=== PATIENT | male | born 1940 | race Caucasian/White ===

== ENCOUNTER 2016-05-21 09:11 | Emergency (ER) | payer MEDICARE ==
[~2016-05-21] VITALS: Ht 182.9 cm; Wt 107.0 kg
[~2016-05-21 09:11] MED LIST: AMIO200T PO; ASPI81 PO; CALC500T35 PO; CARV25TA PO; COZA100T PO; DOXY100T PO; FENO50TA PO; FOLI400T30 PO; FURO1TAB93 PO; GLUC750T22 PO; LORTA5 PO; MINO100 PO; OMEG600C2 PO; SELE200T PO; SIMV20TA PO; SPIR25TA PO; VITA100018 PO; VITA500T49 PO
[2016-05-21 09:20] VITALS: BP 136/74; PULSE 66; RESP 16; TEMP 97.5; O2SAT 98
[2016-05-21 09:41] VITALS: BP 117/62; PULSE 67; RESP 18; O2SAT 96
[2016-05-21] MEDS ORDERED: SODIUM CHLORIDE 0.9% FLUSH 5 ML FLUSH IVF PRN (09:45)
--- NOTE | 2016-05-21 09:45 | PD ---
HPI Chief Complaint: Dizziness Time Seen by Provider: 09:24 Travel History International Travel<30 days: No Contact w/Intl Traveler<30days: No Traveled to known affect area: No History of Present Illness HPI The patient is a 75-year-old male who presents to the emergency department for shortness of breath and dizziness. The patient notes a 2 week history of shortness of breath, was evaluated by his sports leadership instructor, Dr. Medina, who stated his lungs were clear. The patient also states that he has a history of sleep apnea, has been using his CPAP at night, however, he had a leak and has been blowing dry air. The patient thinks that the malfunction in his continuous positive airway pressure machine is causing his problems. The patient then developed dizziness last night that he describes as "things moving ", when he rolled over onto his side. The patient denies any neurologic deficits associated with his dizziness/vertigo. Patient denies any current chest pain, nausea, vomiting, or abdominal pain. The patient does have a primary physician, Dr. Kearns, and a paralegals, Dr. Vega. The patient's symptoms are moderate, there are no current alleviating factors. PFSH Past Medical History Autoimmune Disease: Yes (HX OF SHINGLES IN 04/14) Heart Rhythm Problems: Yes (FAST) Cancer: Yes (L HAND SKIN CANCER) Cardiovascular Problems: Yes High Cholesterol: Yes Diminished Hearing: No Endocrine: No Genitourinary: Yes Hypertension: Yes Immune Disorder: No Musculoskeletal: No Neurologic: Yes Psychiatric: No Reproductive: No Respiratory: Yes Immunizations Current: No Sleep Apnea: Yes (RECENTLY STARTED USE OF C-PAP MACHINE ON 10/17/10) PNEUMOCCOCAL Vaccine (Year): 2009 Past Surgical History AICD: Yes Cardiac Surgery: Yes (IACD) Eye Surgery: Yes (BILAT CATARACTS WITH LENS IMPLANTS) Oral Surgery: Yes (TONSILLECTOMY) Pacemaker: Yes (IACD) Tonsillectomy: Yes Other Surgery: Yes Social History Alcohol Use: No Tobacco Use: No Substance Use: No Allergies-Medications (Allergen,Severity, Reaction): Coded Allergies: Benadryl (Verified Allergy, Severe, RASH, 08/02/12) BENADRYL CREME Cephalexin (Verified Allergy, Severe, HIVES, 08/02/12) Cipro (Verified Allergy, Severe, RASH, 08/02/12) Latex (Verified Allergy, Severe, RASH, 08/02/12) BIO-OCCLUSIVE DRESSING Mupirocin (Verified Allergy, Severe, RASH, HIVES, 08/02/12) Percocet (Verified Allergy, Severe, RASH, 08/02/12) Sotalol (Verified Allergy, Severe, RASH AND VOMITING, 08/02/12) Ropinirole (Verified Allergy, Unknown, Shortness of Breath, 05/21/16) Reported Meds & Prescriptions Reported Meds & Active Scripts Active Reported Vitamin B-12 (Cyanocobalamin) 500 Mcg Tab 500 Mcg PO DAILY Calcium (Calcium Carbonate) 1,500 Mg Tab 1,500 Mg PO BID 1,500 mg calcium carbonate (600 mg elemental calcium) Fish Oil ([place]-3 Fatty Acids) 1,200 Mg Cap 1 Cap PO BID Folic Acid 400 Mcg Tab 400 Mcg PO DAILY Selenium 200 Mcg Cap 200 Mg PO DAILY Vitamin D (Cholecalciferol) 1,000 Unit Tab 1,000 Units PO DAILY Glucosamine 1,500 Mg Tab 1,500 Mg PO DAILY Symbicort Inh (Budesonide/Formoterol Fumarate) 80-4.5 Mcg/Act Aero 1 Puff INH Q12HR Aspirin 81 Mg Tabdr 81 Mg PO DAILY Digoxin 0.125 Mg Tab 0.125 Mg PO DAILY Spironolactone 25 Mg Tab 25 Mg PO DAILY Amiodarone (Amiodarone HCl) 100 Mg Tab 100 Mg PO DAILY Losartan (Losartan Potassium) 50 Mg Tab 50 Mg PO DAILY Carvedilol 12.5 Mg Tab 12.5 Mg PO BID Furosemide 40 Mg Tab 40 Mg PO DAILY Review of Systems Except as stated in HPI: all other systems reviewed are Neg General / Constitutional: No: Fever HENT: No: Headaches, Lightheadedness Cardiovascular: No: Chest Pain or Discomfort Respiratory: Positive: Shortness of Breath Gastrointestinal: No: Nausea, Vomiting, Abdominal Pain Musculoskeletal: No: Weakness Neurologic: Positive: Dizziness, No: Focal Abnormalities Physical Exam Narrative GENERAL: Awake, alert, pleasant 75-year-old male who appears his stated age and is in no acute respiratory distress. SKIN: Warm and dry. HEAD: Atraumatic. Normocephalic. EYES: Pupils equal and round. Pupils are 4 mm bilateral and reactive. EOMs are intact. ENT: No nasal bleeding or discharge. Mucous membranes pink and moist. NECK: Trachea midline. No JVD. CARDIOVASCULAR: Regular rate and rhythm. No murmur appreciated. Pacemaker in place left chest wall. RESPIRATORY: No accessory muscle use. Clear to auscultation. Breath sounds equal bilaterally. GASTROINTESTINAL: Abdomen soft, non-tender, nondistended. No rebound tenderness. MUSCULOSKELETAL: No obvious deformities. No clubbing. No cyanosis. Trace edema the lower extremities. NEUROLOGICAL: Awake and alert. No obvious cranial nerve deficits. Motor grossly within normal limits. Normal speech. Nonfocal. Oriented 4. Follows commands without difficulty. PSYCHIATRIC: Appropriate mood and affect; insight and judgment normal. Data Data Last Documented VS Vital Signs Date Time Temp Pulse Resp B/P Pulse Ox O2 Delivery O2 Flow Rate FiO2 05/21/16 11:21 50 16 114/61 97 Room Air 05/21/16 09:20 97.5 Orders Complete Blood Count With Diff (05/21/16 09:33) Comprehensive Metabolic Panel (05/21/16 09:33) B-Type Natriuretic Peptide (05/21/16 09:33) Magnesium (Mg) (05/21/16 09:33) Ckmb (Isoenzyme) Profile (05/21/16 09:33) Troponin I (05/21/16 09:33) Iv Access Insert/Monitor (05/21/16 09:33) Electrocardiogram (05/21/16 09:33) Ecg Monitoring (05/21/16 09:33) Oximetry (05/21/16 09:33) Oxygen Administration (05/21/16 09:33) Chest, Single Ap (05/21/16 09:33) Sodium Chloride 0.9% Flush (Ns Flush) (05/21/16 09:45) Ct Brain W/O Iv Contrast(Rout) (05/21/16 ) Digoxin (05/21/16 09:39) Labs Laboratory Tests Test 05/21/16 10:10 White Blood Count 6.6 TH/MM3 Red Blood Count 4.01 MIL/MM3 Hemoglobin 13.5 GM/DL Hematocrit 39.5 % Mean Corpuscular Volume 98.7 FL Mean Corpuscular Hemoglobin 33.7 PG Mean Corpuscular Hemoglobin 34.1 % Concent Red Cell Distribution Width 13.6 % Platelet Count 99 TH/MM3 Mean Platelet Volume 9.7 FL Neutrophils (%) (Auto) 63.9 % Lymphocytes (%) (Auto) 15.7 % Monocytes (%) (Auto) 14.2 % Eosinophils (%) (Auto) 5.6 % Basophils (%) (Auto) 0.6 % Neutrophils # (Auto) 4.3 TH/MM3 Lymphocytes # (Auto) 1.0 TH/MM3 Monocytes # (Auto) 0.9 TH/MM3 Eosinophils # (Auto) 0.4 TH/MM3 Basophils # (Auto) 0.0 TH/MM3 CBC Comment AUTO DIFF Differential Comment AUTO DIFF CONFIRMED Platelet Estimate LOW Platelet Morphology Comment NORMAL Sodium Level 135 MEQ/L Potassium Level 4.4 MEQ/L Chloride Level 98 MEQ/L Carbon Dioxide Level 26.6 MEQ/L Anion Gap 10 MEQ/L Blood Urea Nitrogen 25 MG/DL Creatinine 1.20 MG/DL Estimat Glomerular Filtration 59 ML/MIN Rate Random Glucose 139 MG/DL Calcium Level 9.5 MG/DL Magnesium Level 2.2 MG/DL Total Bilirubin 1.1 MG/DL Aspartate Amino Transf 28 U/L (AST/SGOT) Alanine Aminotransferase 15 U/L (ALT/SGPT) Alkaline Phosphatase 107 U/L Total Creatine Kinase 38 U/L Troponin I LESS THAN 0.02 NG/ML B-Type Natriuretic Peptide 1859 PG/ML Total Protein 6.4 GM/DL Albumin 3.1 GM/DL Digoxin Level 0.7 NG/ML MDM Medical Decision Making Medical Screen Exam Complete: Yes Emergency Medical Condition: Yes Medical Record Reviewed: Yes Interpretation(s) EKG reveals sinus bradycardia with a rate of 50. Intraventricular conduction defect. QRS 186 ms. Q waves noted in lead 3 and aVF. Nonspecific T wave changes. Laboratory Tests Test 05/21/16 10:10 White Blood Count 6.6 TH/MM3 Red Blood Count 4.01 MIL/MM3 Hemoglobin 13.5 GM/DL Hematocrit 39.5 % Mean Corpuscular Volume 98.7 FL Mean Corpuscular Hemoglobin 33.7 PG Mean Corpuscular Hemoglobin 34.1 % Concent Red Cell Distribution Width 13.6 % Platelet Count 99 TH/MM3 Mean Platelet Volume 9.7 FL Neutrophils (%) (Auto) 63.9 % Lymphocytes (%) (Auto) 15.7 % Monocytes (%) (Auto) 14.2 % Eosinophils (%) (Auto) 5.6 % Basophils (%) (Auto) 0.6 % Neutrophils # (Auto) 4.3 TH/MM3 Lymphocytes # (Auto) 1.0 TH/MM3 Monocytes # (Auto) 0.9 TH/MM3 Eosinophils # (Auto) 0.4 TH/MM3 Basophils # (Auto) 0.0 TH/MM3 CBC Comment AUTO DIFF Differential Comment AUTO DIFF CONFIRMED Platelet Estimate LOW Platelet Morphology Comment NORMAL Sodium Level 135 MEQ/L Potassium Level 4.4 MEQ/L Chloride Level 98 MEQ/L Carbon Dioxide Level 26.6 MEQ/L Anion Gap 10 MEQ/L Blood Urea Nitrogen 25 MG/DL Creatinine 1.20 MG/DL Estimat Glomerular Filtration 59 ML/MIN Rate Random Glucose 139 MG/DL Calcium Level 9.5 MG/DL Magnesium Level 2.2 MG/DL Total Bilirubin 1.1 MG/DL Aspartate Amino Transf 28 U/L (AST/SGOT) Alanine Aminotransferase 15 U/L (ALT/SGPT) Alkaline Phosphatase 107 U/L Total Creatine Kinase 38 U/L Troponin I LESS THAN 0.02 NG/ML B-Type Natriuretic Peptide 1859 PG/ML Total Protein 6.4 GM/DL Albumin 3.1 GM/DL Digoxin Level 0.7 NG/ML Chest x-ray reveals normal examination. Left-sided bipolar pacer. Differential Diagnosis Differential diagnosis includes intracranial hemorrhage, vertigo, cerebellar infarct, CVA, labyrinthitis, arrhythmia, congestive heart failure, COPD, pleural effusion. Narrative Course IV was established, labs were drawn and sent, and the patient was placed on cardiac telemetry monitoring and continuous pulse oximetry monitoring. EKG was ordered and interpreted. Chest x-ray was ordered. CT of the brain was ordered. Digoxin level was sent to lab. The patient's chest x-ray was clear. EKG reveals IV conduction defect, most likely left bundle branch block with underlying pacemaker placement. The patient's BNP is elevated, however, chest x -rays clear. Patient may have underlying cardiac myopathy. The patient does have a paralegals and is scheduled for nuclear medicine myocardial perfusion scan this and then an echocardiogram the following . The patient is not hypoxic, heart rate is been in the 50s, blood pressure is stable. No indication for acute diuresis or nitroglycerin with clear chest x- ray. The patient's digoxin level was low at 0.7, doubt the cause of the patient 's dizziness. The patient is advised to follow-up with his paralegals for outpatient date med an echocardiogram as previously scheduled. Diagnosis Primary Impression: Dyspnea Qualified Code: R06.00 - Dyspnea, unspecified type Additional Impression: Dizziness Patient Instructions: General Instructions Additional Instructions: Please provide a patient a copy of his lab work and chest x-ray report at discharge. Follow-up with your paralegals as scheduled for outpatient nuclear medicine myocardial perfusion scan and echocardiogram. Return sooner if symptoms worsen or progress. Med/Other Pt SpecificInfo: No Change to Meds Disposition: 01 DISCHARGE HOME Condition: Stable Ciro Jo MD May 21, 2016 09:45
[2016-05-21] MEDS ORDERED: CARV12.52 PO (09:56)
[2016-05-21] MEDS ORDERED: FISH120014 PO (09:56)
[2016-05-21] MEDS ORDERED: VITA500T4 PO (09:56)
[2016-05-21] MEDS ORDERED: SPIR25TA PO (09:56)
[2016-05-21] MEDS ORDERED: FURO40TA PO (09:56)
[2016-05-21] MEDS ORDERED: [UNRECOGNIZED DRUG - CODE] PO (09:56)
[2016-05-21] MEDS ORDERED: FOLI400T PO (09:56)
[2016-05-21] MEDS ORDERED: ASPI1TAB69 PO (09:56)
[2016-05-21] MEDS ORDERED: VITA100064 PO (09:56)
[2016-05-21] MEDS ORDERED: GLUC15009 PO (09:56)
[2016-05-21] MEDS ORDERED: DIGO0.12 PO (09:56)
[2016-05-21] MEDS ORDERED: LOSA50TA PO (09:56)
[2016-05-21] MEDS ORDERED: AMIO0.1T PO (09:56)
[2016-05-21] MEDS ORDERED: CALC600T12 PO (09:56)
[2016-05-21] MEDS ORDERED: SYMB80AE INH (09:56)
--- NOTE | 2016-05-21 10:04 | RADHPO ---
EXAM DATE/TIME: 05/21/2016 09:48 [facility] COMPARISON: CHEST SINGLE AP, August 02, 2012, 3:40. INDICATIONS : Short of breath MEDICAL HISTORY : Chronic obstructive pulmonary disease. SURGICAL HISTORY : Pacemaker. ENCOUNTER: Initial ACUITY: 1 day PAIN SCORE: 0/10 LOCATION: Bilateral chest FINDINGS: A single view of the chest demonstrates the lungs to be symmetrically aerated without evidence of mas s, infiltrate or effusion. The cardiomediastinal contours are unremarkable. Osseous structures are intact. CONCLUSION: Normal examination. Left-sided bipolar pacer. Joaquin Oliver MD on May 21, 2016 at 10:02 Board Certified Radiologist. This report was verified electronically.
--- NOTE | 2016-05-21 10:12 | RADHPO ---
EXAM DATE/TIME: 05/21/2016 09:51 [facility] COMPARISON: No previous studies available for comparison. INDICATIONS : Dizziness today. RADIATION DOSE: 61.14 CTDIvol (mGy) MEDICAL HISTORY : Myocardial infarction. Hypertension. SURGICAL HISTORY : defibrillator placement ENCOUNTER: Initial ACUITY: 1 day PAIN SCALE: 0/10 LOCATION: Bilateral head TECHNIQUE: Multiple contiguous axial images were obtained of the head. Using automated exposure control and adj ustment of the mA and/or kV according to patient size, radiation dose was kept as low as reasonably a chievable to obtain optimal diagnostic quality images. FINDINGS: CEREBRUM: The ventricles are normal for age. No evidence of midline shift, mass lesion, hemorrhage or acute in farction. No extra-axial fluid collections are seen. POSTERIOR FOSSA: The cerebellum and brainstem are intact. The 4th ventricle is midline. The cerebellopontine angle i s unremarkable. EXTRACRANIAL: The visualized portion of the orbits is intact. The nasal septum is bowed to the right SKULL: The calvaria is intact. No evidence of skull fracture. CONCLUSION: Normal examination. Joaquin Oliver MD on May 21, 2016 at 10:10 Board Certified Radiologist. This report was verified electronically.
[2016-05-21 10:19] VITALS: BP 108/62; PULSE 52; RESP 18; O2SAT 95
[2016-05-21 10:31] LABS: AUTOMATED NEUTROPHIL # 4.3 TH/MM3 (1.8-7.7); BASOPHIL % 0.6 % (0.0-2.0); EOSINOPHIL # 0.4 TH/MM3 (0-0.4); EOSINOPHIL % 5.6 % (0.0-4.0); HEMATOCRIT 39.5 % (39.0-51.0); LYMPH % 15.7 % (9.0-44.0); MEAN CELL VOLUME 98.7 FL (80.0-100.0); MEAN CORPUSCULAR HEMOGLOBIN 33.7 PG (27.0-34.0); MEAN CORPUSCULAR HGB CONC 34.1 % (32.0-36.0); MONO % 14.2 % (0.0-8.0); NEUT % 63.9 % (16.0-70.0); PLATELET COUNT 99 TH/MM3 (150-450); RED BLOOD COUNT 4.01 MIL/MM3 (4.50-5.90); RED CELL DISTRIBUTION WIDTH 13.6 % (11.6-17.2); WHITE BLOOD COUNT 6.6 TH/MM3 (4.0-11.0)
[2016-05-21 10:33] LABS: HEMO FLAGS AUTO DIFF
[2016-05-21 10:39] LABS: CHLORIDE 98 MEQ/L (98-107); POTASSIUM 4.4 MEQ/L (3.5-5.1); SODIUM (NA) 135 MEQ/L (136-145)
[2016-05-21 10:42] LABS: ANION GAP 10 MEQ/L (5-15); BICARBONATE 26.6 MEQ/L (21.0-32.0); MAGNESIUM 2.2 MG/DL (1.5-2.5)
[2016-05-21 10:43] LABS: BLOOD UREA NITROGEN 25 MG/DL (7-18)
[2016-05-21 10:46] LABS: ALT (GPT) 15 U/L (12-78); AST (GOT) 28 U/L (15-37); GLOMERULAR FILTRATION RATE 59 ML/MIN (>89)
[2016-05-21 10:47] LABS: TOTAL BILIRUBIN ADULT 1.1 MG/DL (0.2-1.0)
[2016-05-21 10:48] LABS: ALKALINE PHOSPHATASE 107 U/L (45-117)
[2016-05-21 10:52] LABS: CREATINE KINASE 38 U/L (39-308)
[2016-05-21 10:54] LABS: PLATELET ESTIMATE SMEAR LOW (NORMAL); PLATELET MORPHOLOGY NORMAL (NORMAL)
[2016-05-21 10:55] LABS: SCAN/DIFF AUTO DIFF CONFIRMED
[2016-05-21 11:21] VITALS: BP 114/61; PULSE 50; RESP 16; O2SAT 97
[2016-05-21 12:17] VITALS: BP 114/61; PULSE 52; RESP 18; O2SAT 97
--- NOTE | 2016-05-22 19:46 | EKG ---
Date Performed: 05/21/2016 Time Performed: 09:35:22 PTAGE: 75 years EKG: Sinus bradycardia with sinus arrhythmia Left axis deviation IV conduction defect Inferior i nfarct - age undetermined Possible anterior infarct - age undetermined Lateral ST-T changes suggest m yocardial injury/ischemia Abnormal ECG PREVIOUS TRACING : 08/02/2012 15.13 DOCTOR: Lito Marcial Interpretating Date/Time 05/22/2016 19:39:24
== END 2016-05-21 12:28 | disposition home or self-care (01) ==
LOC: PHED 09:11
DX: R06.00 Dyspnea, unspecified (principal); R42 Dizziness and giddiness; R00.1 Bradycardia, unspecified; I49.8 Other specified cardiac arrhythmias; E78.00 Pure hypercholesterolemia, unspecified; I10 Essential (primary) hypertension; G47.30 Sleep apnea, unspecified; Z95.810 Presence of automatic (implantable) cardiac defibrillator; Z79.899 Other long term (current) drug therapy
CPT/HCPCS: 70450; 71010; 80053; 80162; 82550; 83735; 83880; 84484; 85025; 93005

== ENCOUNTER 2016-07-01 03:43 | Emergency (ER) | payer MEDICARE ==
[~2016-07-01] VITALS: Ht 182.9 cm; Wt 103.1 kg
[~2016-07-01 03:43] MED LIST changes: +AMIO0.1T PO; -AMIO200T PO; +ASPI1TAB69 PO; -ASPI81 PO; -CALC500T35 PO; +CALC600T12 PO; +CARV12.52 PO; -CARV25TA PO; -COZA100T PO; +DIGO0.12 PO; -DOXY100T PO; -FENO50TA PO; +FISH120014 PO; +FOLI400T PO; -FOLI400T30 PO; -FURO1TAB93 PO; +FURO40TA PO; +GLUC15009 PO; -GLUC750T22 PO; -LORTA5 PO; +LOSA50TA PO; -MINO100 PO; -OMEG600C2 PO; -SELE200T PO; -SIMV20TA PO; +SYMB80AE INH; -VITA100018 PO; +VITA100064 PO; +VITA500T4 PO; -VITA500T49 PO; +[UNRECOGNIZED DRUG - CODE] PO
[2016-07-01 03:52] VITALS: BP 114/67; PULSE 54; TEMP 97.8; O2SAT 95
[2016-07-01 04:05] VITALS: BP 114/67; PULSE 50; RESP 20; TEMP 97.8; O2SAT 95
--- NOTE | 2016-07-01 04:18 | PD ---
HPI Chief Complaint: Respiratory Distress Time Seen by Provider: 04:07 Travel History International Travel<30 days: No Contact w/Intl Traveler<30days: No Traveled to known affect area: No History of Present Illness HPI The patient is a 75-year-old male with a history of congestive heart failure who complains of shortness of breath in that he couldn't catch his breath out it was seated. The patient went to bed and states he couldn't sleep because of shortness of breath. He put pillows behind his neck with no relief. He came in last month was similar problems. Dr. Griffin evaluated the patient and stated his lungs were clear. He has a history of sleep apnea and uses CPAP at night. He does take spironolactone 25 mg twice daily, Lasix once daily. He states he is supposed to take the spironolactone 3 times daily but he only takes it twice daily because he says he would be up all night urinating if he did. He denies any chest pain. He is not currently short of breath. PFSH Past Medical History Autoimmune Disease: Yes (HX OF SHINGLES IN 04/14) Heart Rhythm Problems: Yes (FAST) Cancer: Yes (L HAND SKIN CANCER) Cardiovascular Problems: Yes (HTN, CHF) High Cholesterol: Yes Diminished Hearing: No Endocrine: No Genitourinary: Yes Hypertension: Yes Immune Disorder: No Implanted Vascular Access Dvce: Yes Musculoskeletal: No Neurologic: Yes Psychiatric: No Reproductive: No Respiratory: Yes (COPD) Immunizations Current: No Sleep Apnea: Yes (RECENTLY STARTED USE OF C-PAP MACHINE ON 10/17/10) PNEUMOCCOCAL Vaccine (Year): 2009 Past Surgical History AICD: Yes Cardiac Surgery: Yes (IACD) Eye Surgery: Yes (BILAT CATARACTS WITH LENS IMPLANTS) Oral Surgery: Yes (TONSILLECTOMY) Pacemaker: Yes (IACD) Tonsillectomy: Yes Other Surgery: Yes Social History Alcohol Use: No Tobacco Use: No Substance Use: No Allergies-Medications (Allergen,Severity, Reaction): Coded Allergies: Benadryl (Verified Allergy, Severe, RASH, 07/01/16) BENADRYL CREME Cephalexin (Verified Allergy, Severe, HIVES, 07/01/16) Cipro (Verified Allergy, Severe, RASH, 07/01/16) Latex (Verified Allergy, Severe, RASH, 07/01/16) BIO-OCCLUSIVE DRESSING Mupirocin (Verified Allergy, Severe, RASH, HIVES, 07/01/16) Percocet (Verified Allergy, Severe, RASH, 07/01/16) Sotalol (Verified Allergy, Severe, RASH AND VOMITING, 07/01/16) Ropinirole (Verified Allergy, Unknown, Shortness of Breath, 07/01/16) Reported Meds & Prescriptions Reported Meds & Active Scripts Active Reported Vitamin B-12 (Cyanocobalamin) 500 Mcg Tab 500 Mcg PO DAILY Calcium (Calcium Carbonate) 1,500 Mg Tab 1,500 Mg PO BID 1,500 mg calcium carbonate (600 mg elemental calcium) Fish Oil ([place]-3 Fatty Acids) 1,200 Mg Cap 1 Cap PO BID Folic Acid 400 Mcg Tab 400 Mcg PO DAILY Selenium 200 Mcg Cap 200 Mg PO DAILY Vitamin D (Cholecalciferol) 1,000 Unit Tab 1,000 Units PO DAILY Glucosamine 1,500 Mg Tab 1,500 Mg PO DAILY Symbicort Inh (Budesonide/Formoterol Fumarate) 80-4.5 Mcg/Act Aero 1 Puff INH Q12HR Aspirin 81 Mg Tabdr 81 Mg PO DAILY Digoxin 0.125 Mg Tab 0.125 Mg PO DAILY Spironolactone 25 Mg Tab 25 Mg PO DAILY Amiodarone (Amiodarone HCl) 100 Mg Tab 100 Mg PO DAILY Losartan (Losartan Potassium) 50 Mg Tab 50 Mg PO DAILY Carvedilol 12.5 Mg Tab 12.5 Mg PO BID Furosemide 40 Mg Tab 40 Mg PO DAILY Review of Systems Except as stated in HPI: all other systems reviewed are Neg Physical Exam Narrative GENERAL: The patient is alert, oriented 3 in no respiratory distress. His vital signs are normal. His oximetry is 95% on room air. When I see the patient is oximetry is 96% and his respirations are 16. SKIN: Warm and dry. HEAD: Atraumatic. Normocephalic. EYES: Pupils equal and round. No scleral icterus. No injection or drainage. ENT: No nasal bleeding or discharge. Mucous membranes pink and moist. NECK: Trachea midline. No JVD. CARDIOVASCULAR: Regular rate and rhythm. No murmur appreciated. RESPIRATORY: No accessory muscle use. A few scattered wheezes are heard in the left base.. Breath sounds equal bilaterally. GASTROINTESTINAL: Abdomen soft, non-tender, nondistended. Hepatic and splenic margins not palpable. MUSCULOSKELETAL: No obvious deformities. No clubbing. No cyanosis. There is 2 + bilateral lower extremity edema. NEUROLOGICAL: Awake and alert. No obvious cranial nerve deficits. Motor grossly within normal limits. Normal speech. PSYCHIATRIC: Appropriate mood and affect; insight and judgment normal. Data Data Last Documented VS Vital Signs Date Time Temp Pulse Resp B/P Pulse Ox O2 Delivery O2 Flow Rate FiO2 07/01/16 05:18 52 20 117/61 95 Room Air 07/01/16 04:05 97.8 Orders Complete Blood Count With Diff (07/01/16 04:18) Comprehensive Metabolic Panel (07/01/16 04:18) B-Type Natriuretic Peptide (07/01/16 04:18) Magnesium (Mg) (07/01/16 04:18) Troponin I (07/01/16 04:18) Urinalysis - C+S If Indicated (07/01/16 04:18) Iv Access Insert/Monitor (07/01/16 04:18) Electrocardiogram (07/01/16 04:18) Ecg Monitoring (07/01/16 04:18) Oximetry (07/01/16 04:18) Oxygen Administration (07/01/16 04:18) Chest, Pa & Lat (07/01/16 04:18) Sodium Chloride 0.9% Flush (Ns Flush) (07/01/16 04:30) Furosemide Inj (Lasix Inj) (07/01/16 04:30) Albuterol-Ipratropium Neb (Duoneb Neb) (07/01/16 04:30) Labs Laboratory Tests Test 07/01/16 07/01/16 04:28 04:58 White Blood Count 7.3 TH/MM3 Red Blood Count 3.91 MIL/MM3 Hemoglobin 12.8 GM/DL Hematocrit 38.4 % Mean Corpuscular Volume 98.1 FL Mean Corpuscular Hemoglobin 32.7 PG Mean Corpuscular Hemoglobin 33.3 % Concent Red Cell Distribution Width 14.0 % Platelet Count 82 TH/MM3 Mean Platelet Volume 11.2 FL Neutrophils (%) (Auto) 60.4 % Lymphocytes (%) (Auto) 24.4 % Monocytes (%) (Auto) 12.0 % Eosinophils (%) (Auto) 2.7 % Basophils (%) (Auto) 0.5 % Neutrophils # (Auto) 4.4 TH/MM3 Lymphocytes # (Auto) 1.8 TH/MM3 Monocytes # (Auto) 0.9 TH/MM3 Eosinophils # (Auto) 0.2 TH/MM3 Basophils # (Auto) 0.0 TH/MM3 CBC Comment DIFF FINAL Differential Comment Sodium Level 129 MEQ/L Potassium Level 4.4 MEQ/L Chloride Level 94 MEQ/L Carbon Dioxide Level 24.9 MEQ/L Anion Gap 10 MEQ/L Blood Urea Nitrogen 27 MG/DL Creatinine 1.20 MG/DL Estimat Glomerular Filtration 59 ML/MIN Rate Random Glucose 89 MG/DL Calcium Level 10.5 MG/DL Magnesium Level 1.9 MG/DL Total Bilirubin 1.0 MG/DL Aspartate Amino Transf 25 U/L (AST/SGOT) Alanine Aminotransferase 16 U/L (ALT/SGPT) Alkaline Phosphatase 139 U/L Troponin I LESS THAN 0.02 NG/ML B-Type Natriuretic Peptide 1224 PG/ML Total Protein 6.3 GM/DL Albumin 3.3 GM/DL Urine Color YELLOW Urine Turbidity CLEAR Urine pH 7.0 Urine Specific [place] 1.008 Urine Protein NEG mg/dL Urine Glucose (UA) NEG mg/dL Urine Ketones NEG mg/dL Urine Occult Blood NEG Urine Nitrite NEG Urine Bilirubin NEG Urine Leukocyte Esterase NEG Urine RBC 0-2 /hpf Urine WBC 0-2 /hpf Urine Squamous Epithelial 0-5 /hpf Cells Urine Bacteria NONE /hpf Microscopic Urinalysis Comment CULT NOT INDICATED MDM Medical Decision Making Medical Screen Exam Complete: Yes Emergency Medical Condition: Yes Medical Record Reviewed: Yes Interpretation(s) The EKG shows sinus bradycardia, right bundle branch block, no acute change otherwise. Sinus rate is 53. The CBC shows a hemoglobin of 12.8 with hematocrit of 38.4 but is otherwise unremarkable. The complete metabolic profile shows a sodium of 129, BUN 27, calcium 10.5 with alkaline phosphatase 139 and total protein 6.3 and albumen 3.3 but is otherwise normal. The troponin I is normal but the BNP is 1224. Urinalysis is normal and culture is not indicated. The chest x-ray shows cardiomegaly and small bilateral effusions. Differential Diagnosis Noncompliance to medications, myocardial infarction, congestive heart failure, electrolyte disorder, pulmonary embolusunlikely, COPD with acute exacerbation Narrative Course The patient has congestive heart failure largely because of noncompliance to his medications. He needs to take his spironolactone as prescribed. He will be given a urinal to put by his bedside to make it easier for him to get up in the middle of the night. After he takes his medications correctly he should follow-up with his primary care physician and his primary care physician should adjust his medications. He should voice is concerned about having to get up in the middle of the night to urinate multiple times. The patient has bilateral leg edema, bilateral pleural effusions, cardiomegaly and an elevated BNP. There was no evidence for COPD with acute exacerbation. Diagnosis Primary Impression: Congestive heart failure Additional Impression: Noncompliance with medications Additional Instructions: As we discussed, take her medications exactly as they are prescribed. Follow- up with your primary care physician so that he can fine-tune your medications. It might be possible for him to adjust the timing of your medications see you don't have to get up at night so frequently. Med/Other Pt SpecificInfo: No Change to Meds Disposition: 01 DISCHARGE HOME Condition: Stable Oz Love MD Jul 01, 2016 04:18
[2016-07-01] MEDS ORDERED: FUROSEMIDE 100 MG/10 ML VIAL IVP ONE (04:30)
[2016-07-01] MEDS ORDERED: SODIUM CHLORIDE 0.9% FLUSH 5 ML FLUSH IVF PRN (04:30)
[2016-07-01] MEDS: RESP: ALBUTEROL 2.5 MG/IPRATROPIUM 0.5 MG NEB (SCH) INH (04:31)
[2016-07-01 04:54] LABS: AUTOMATED NEUTROPHIL # 4.4 TH/MM3 (1.8-7.7); BASOPHIL % 0.5 % (0.0-2.0); EOSINOPHIL # 0.2 TH/MM3 (0-0.4); EOSINOPHIL % 2.7 % (0.0-4.0); HEMATOCRIT 38.4 % (39.0-51.0); LYMPH % 24.4 % (9.0-44.0); LYMPHOCYTE # 1.8 TH/MM3 (1.0-4.8); MEAN CELL VOLUME 98.1 FL (80.0-100.0); MEAN CORPUSCULAR HEMOGLOBIN 32.7 PG (27.0-34.0); MEAN CORPUSCULAR HGB CONC 33.3 % (32.0-36.0); NEUT % 60.4 % (16.0-70.0); PLATELET COUNT 82 TH/MM3 (150-450); RED BLOOD COUNT 3.91 MIL/MM3 (4.50-5.90); WHITE BLOOD COUNT 7.3 TH/MM3 (4.0-11.0)
[2016-07-01 05:00] LABS: CHLORIDE 94 MEQ/L (98-107); HEMO FLAGS DIFF FINAL; POTASSIUM 4.4 MEQ/L (3.5-5.1); SODIUM (NA) 129 MEQ/L (136-145)
[2016-07-01] MEDS ORDERED: RESP: ALBUTEROL 2.5 MG/IPRATROPIUM 0.5 MG NEB (SCH) INH (05:00)
--- NOTE | 2016-07-01 05:00 | RADHPO ---
EXAM DATE/TIME: 07/01/2016 04:42 [facility] COMPARISON: CHEST SINGLE AP, May 21, 2016, 9:48. INDICATIONS : Shortness of breath. MEDICAL HISTORY : Myocardial infarction. Hypertension. SURGICAL HISTORY : Pacemaker. ENCOUNTER: Initial ACUITY: 3 weeks PAIN SCORE: 0/10 LOCATION: Bilateral chest FINDINGS: Cardiomegaly. Pacer/ICD device from a left subclavian approach again noted. Blunting of the bilateral costophrenic angles identified characteristic of small bilateral effusions. The lungs are otherwise clear. Degenerative changes of the spine are noted. CONCLUSION: Cardiomegaly. Small bilateral effusions. Eduar Puckett MD on July 01, 2016 at 4:58 Board Certified Radiologist. This report was verified electronically.
[2016-07-01 05:04] LABS: ANION GAP 10 MEQ/L (5-15); BICARBONATE 24.9 MEQ/L (21.0-32.0); BLOOD UREA NITROGEN 27 MG/DL (7-18); MAGNESIUM 1.9 MG/DL (1.5-2.5)
[2016-07-01 05:05] LABS: BLOOD, URINE NEG (NEG); GLUCOSE,URINE NEG (NEG); KETONE, URINE NEG (NEG); NITRITE,URINE NEG (NEG)
[2016-07-01 05:07] LABS: ALT (GPT) 16 U/L (12-78); AST (GOT) 25 U/L (15-37); GLOMERULAR FILTRATION RATE 59 ML/MIN (>89)
[2016-07-01 05:10] LABS: ALKALINE PHOSPHATASE 139 U/L (45-117)
[2016-07-01 05:10] LABS: COMMENT (UR) CULT NOT INDICATED; CULTURE IF INDICATED CULT NOT INDICATED; RBC, URINE 0-2 /hpf (0-3); SQUAMOUS EPITHELIAL CELL URINE 0-5 /hpf (0-5); URINE COLOR YELLOW (YELLW/STRAW); WBC, URINE 0-2 /hpf (0-5)
[2016-07-01 05:18] VITALS: BP 117/61; PULSE 52; RESP 20; O2SAT 95
[2016-07-01 05:53] VITALS: BP 115/59; PULSE 59; RESP 20; O2SAT 97
--- NOTE | 2016-07-01 14:35 | EKG ---
Date Performed: 07/01/2016 Time Performed: 04:56:06 PTAGE: 75 years EKG: Sinus bradycardia. Right axis deviation, consider left arm right arm lead reversal Nonspeci fic intraventricular conduction delay Abnormal ECG PREVIOUS TRACING : 05/21/2016 09.35 Compared to previous tracing, left arm, right arm lead reve rsal is now present. DOCTOR: Alexey Deluca Interpretating Date/Time 07/01/2016 14:34:06
== END 2016-07-01 06:22 | disposition home or self-care (01) ==
LOC: PHED 03:43
DX: I50.9 Heart failure, unspecified (principal); I10 Essential (primary) hypertension; J44.9 Chronic obstructive pulmonary disease, unspecified; Z91.14 Patient's other noncompliance with medication regimen
CPT/HCPCS: 71020; 80053; 81001; 83735; 83880; 84484; 85025; 93005; 94640; 94664; 96374; 99285; J1940

== ENCOUNTER → 2016-07-28 | Outpatient (CLI) | payer BC ==
--- NOTE | 2016-08-09 08:33 | RSPPFT ---
DATE OF PROCEDURE: 07/28/16 COMMENTS: Spirometry with FVC of 3.1, FEV1 of 2.1, FEV1/FVC ratio at 69%. Slow vital capacity is 67% of predicted. TLC is 81%. Diffusion capacity is 70% of predicted and normal when corrected for alveolar volume. IMPRESSION: 1. Moderate airways obstruction. 2. No evidence of airways restriction. 3. Mild reduction in diffusion capacity and normal when corrected for alveolar volume.
== END ==
LOC: HRSP 07:42
PROVIDERS: ATTEND Internal Medicine Sleep Medicine
DX: R06.89 Other abnormalities of breathing (principal)
CPT/HCPCS: 94060; 94726; 94729